=== PATIENT | female | born 1970 | race Caucasian/White ===

== ENCOUNTER → 2021-04-10 | Outpatient (CLI) | payer OTHER ==
--- NOTE | 2021-04-10 15:37 | 2DMMODE ---
[place] [address] 2 D/M-MODE ECHOCARDIOGRAM Name: [address] Room: [facility]#: [id number] Admission: 04/10/21 Attend Phys: Kalli Robert Discharge: Date of : 72 Date of Service: 04/10/21 1536 Report #: [id number] THIS REPORT FOR: cc: Kalli Robert,Kolton Stern MD [facility] ~ APPROVED REPORT Study performed: 04/10/2021 12:50:10 EXAM: Comprehensive 2D, Doppler, and color-flow Echocardiogram Patient Location: Out-Patient BSA: 2.03 HR: 84 bpm BP: 130/75 mmHg Other Information Study Quality: Good Indications Murmur 2D Dimensions IVSd: 13.07 (7-11mm) LVOT Diam: 20.08 (18-24mm) LVDd: 48.07 mm PWd: 11.60 (7-11mm) Ascending Ao: 32.51 (22-36mm) LVDs: 29.98 (25-40mm) Aortic Root: 30.47 mm Volumes Left Atrial Volume (Systole) LA ESV Index: 13.60 mL/m2 Aortic Valve AoV Peak Angelito.: 1.45 m/s AO Peak Gr.: 8.46 mmHg LVOT Max P.31 mmHg AO Mean Gr.: 4.30 mmHg LVOT Mean P.52 mmHg LVOT Max V: 1.15 m/s AO V2 VTI: 27.96 cm LVOT Mean V: 0.72 m/s TORIE (VTI): 2.79 cm2 LVOT V1 VTI: 24.59 cm Mitral Valve E/A Ratio: 0.93 [place] [address] 2 D/M-MODE ECHOCARDIOGRAM Name: [address] Room: [facility]#: [id number] Admission: 04/10/21 Attend Phys: Kalli Robert Discharge: Date of : 72 Date of Service: 04/10/21 1536 Report #: [id number] MV Decel. Time: 207.19 ms MV E Max Angelito.: 0.80 m/s MV PHT: 60.09 ms MVA (PHT): 3.66 cm2 TDI E/Lateral E': 7.27 E/Medial E': 6.67 Medial E' Angelito.: 0.12 m/s Lateral E' Angelito.: 0.11 m/s Pulmonary Valve PV Peak Angelito.: 0.92 m/s PV Peak Gr.: 3.36 mmHg Tricuspid Valve RAP Estimate: 5.00 mmHg TR Peak Gr.: 17.78 mmHg RVSP: 22.78 mmHg PA Pressure: 22.78 mmHg Left Ventricle The left ventricle is normal size. There is normal LV segmental wall motion. Mild concentric left ventricular hypertrophy. Left ventricular systolic function is normal. The left ventricular ejection fraction is within the normal range. LVEF is 55-60%. Grade I - abnormal relaxation pattern. Right Ventricle The right ventricle is normal size. The right ventricular systolic function is normal. Atria The left atrium size is normal. The right atrium size is normal. Aortic Valve The aortic valve is normal in structure. No aortic regurgitation is present. There is no aortic valvular stenosis. Mitral Valve The mitral valve is normal in structure. There is trace mitral valve regurgitation noted. No evidence of mitral valve stenosis. Tricuspid Valve The tricuspid valve is normal in structure. Mild tricuspid regurgitation[place] [address] 2 D/M-MODE ECHOCARDIOGRAM Name: [address] Room: [facility]#: [id number] Admission: 04/10/21 Attend Phys: Kalli Robert Discharge: Date of : 72 Date of Service: 04/10/21 1536 Report #: [id number] The pulmonary valve is normal in structure. Mild pulmonic regurgitation. Great Vessels The aortic root is normal in size. IVC is normal in size and collapses >50% with inspiration. Pericardium There is no pericardial effusion. <Conclusion> Mild concentric left ventricular hypertrophy. LVEF is 55-60%. <ELECTRONICALLY SIGNED> By: Kolton Mathews MD, [facility] 04/10/21 1536 1536 1536 Kolton Mathews MD, FAC /INF
== END ==
LOC: M.CRD 12:52
PROVIDERS: ATTEND Nurse Practitioner Family
DX: I08.8 Other rheumatic multiple valve diseases (principal); R01.1 Cardiac murmur, unspecified